=== PATIENT | male | born 1970 | race Caucasian/White ===

== ENCOUNTER 2023-01-13 07:42 | Emergency (ER) | payer BC, SELFPAY ==
[2023-01-13 07:51] VITALS: BP 121/71; PULSE 57; RESP 16; TEMP 36.3; O2SAT 92; BMI 28.1
--- NOTE | 2023-01-13 08:01 | ED.GENADULT ---
HPI - General Adult General Time Seen by Provider: 08:01 Date Seen: 01/13/23 Chief complaint: Animal Bite Stated complaint: cat bite, 01/12/23 Time Seen by Provider: 01/13/23 08:01 Source: patient and RN notes reviewed Mode of arrival: ambulatory Limitations: no limitations History of Present Illness HPI narrative: Patient is a very pleasant 52-year-old man with tetanus that is who comes to the emergency room for evaluation regarding CT and bites and scratches. Patient notes that he is visiting from [place] and staying here in the area. He notes that he was playing with an indoor cat, vaccine status on known, who ended up biting him and scratching him on his left arm. He now has redness around 1 of the areas and discomfort. He has not experienced any fever or chills. He has not had difficult to treat infections in the past. He notes no numbness or tingling. Related Data Home Medications Medication Instructions Recorded Confirmed fluticasone 100 mcg-salmeterol 50 1 inh inhalation DAILY 01/13/23 01/13/23 mcg/dose blistr powdr for inhalation (Advair Diskus) omeprazole 20 mg capsule,delayed 20 mg PO DAILY 01/13/23 01/13/23 release sertraline 150 mg capsule 150 mg PO DAILY 01/13/23 01/13/23 Allergies Allergy/AdvReac Type Severity Reaction Status Date / Time No Known Drug Allergies Allergy Verified 01/13/23 07:49 Review of Systems Status of ROS: Reports: 6 or more systems reviewed and unremarkable except as noted in History and below Const: Denies: fever or chills Cardio: Denies: shortness of breath with exertion Resp: Denies: shortness of breath Neuro: Denies: numbness in extremities or weakness in extremities Exam Narrative: Exam Narrative: Alert and oriented. No acute distress. Examination of the arm shows at least 3 puncture wounds with partial scabbing on the right for arm dorsum. The middle 1 does have air surrounding erythema as well as tenderness. Erythema is not well demarcated. On the volar surface there are 2 more wounds. He also has a superficial scratch noted on the lateral aspect of the forearm. He has no pain if I flex or extend the wrist. Distally sensation and motor is intact. The wounds are not excessively warm to the touch. Const: Vital Signs, click to edit/add: Vital Signs - 24 hr 01/13/23 07:51 Temperature 97.3 F L Pulse Rate [Pulse Oximeter] 57 L Respiratory Rate 16 Blood Pressure [Ri ght Upper Arm] 121/71 Pulse Oximetry 92 Oxygen Delivery Me thod Room Air Documenting provider has reviewed patient's vital signs: yes Course Course Hospital Course: At this time 2 of the 3 wounds on the dorsum of the forearm do have surrounding erythema and some swelling. Will x-ray to ensure no foreign body is retained-CT teeth. Also trying to ascertain vaccination status of the CT as well as if this CT has access to the outside environment or is purely a house cat. Vital Signs Vital signs: Initial Vital Signs Temperature 97.3 F L 01/13/23 07:51 Temperature Source Temporal Artery Scan 01/13/23 07:51 Pulse Rate 57 L 01/13/23 07:51 Pulse Rhythm Regular 01/13/23 07:51 Pulse Strength 3+ Normal 01/13/23 07:51 Respiratory Rate 16 01/13/23 07:51 Blood Pressure 121/71 01/13/23 07:51 Blood Pressure Mean 87 01/13/23 07:51 Blood Pressure Position Sitting 01/13/23 07:51 Pulse Oximetry 92 01/13/23 07:51 Oxygen Delivery Method Room Air 01/13/23 07:51 Vital Signs Temperature 97.3 F L 01/13/23 07:51 Pulse Rate 57 L 01/13/23 07:51 Respiratory Rate 16 01/13/23 07:51 Blood Pressure 121/71 01/13/23 07:51 Pulse Oximetry 92 01/13/23 07:51 Oxygen Delivery Method Room Air 01/13/23 07:51 Temperature 97.3 F L 01/13/23 07:51 Pulse Rate 57 L 01/13/23 07:51 Respiratory Rate 16 01/13/23 07:51 Blood Pressure 121/71 01/13/23 07:51 Pulse Oximetry 92 01/13/23 07:51 Oxygen Delivery Method Room Air 01/13/23 07:51 Medical Decision Making [facility] Narrative Medical decision making narrative: 1. Cat bite cellulitis-patient has no allergies. Will treat with Augmentin 875 p.o. b.i.d. x7 days. Patient will need to return for worsening symptoms especially fever, chills, vomiting, increasing redness or purulent drainage. 2. . Disposition-home at this time. Return as needed for worsening symptoms. Note we were able to ascertain that the cat that bit Jabari has up-to-date vaccinations. It is also in entirely in the house cat. Does not get released to the outside. Therefore it would suggest quarantine of the CT inside for the next [address] starts behaving abnormally they will need to take it to the vet and let the vent know that somebody had previously been bitten and although remote there would be a concern for rabies. Patient is discharged by nursing. Imaging Data Right forearm x-ray: Attestation: I have reviewed the pertinent imaging results. My impression: No foreign bodies noted. Radiologist's impression: ones: Alignment is normal. No fractures or bone lesions.? Joint spaces: Unremarkable.? Soft tissues: No radiodense foreign body or soft tissue gas. Impression: Unremarkable right forearm. Discharge Plan Discharge Clinical Impression: Cellulitis Qualifiers: Site of cellulitis: extremity Site of cellulitis of extremity: upper extremity Laterality: right Qualified Code(s): L03.113 - Cellulitis of right upper limb Cat bite Qualifiers: Encounter type: initial encounter Qualified Code(s): W55.01XA - Bitten by cat, initial encounter Patient Disposition: Home, Self-Care Condition: Unchanged Additional Instructions: Start antibiotic Augmentin today and continue for 7 days. Do not stop the medication just because the wound is improved. Continue for the full course. Monitor your wounds. Limit a lot of movement at the elbow and wrist. Have your friends quarantine the cat inside-absolutely no released to the outside. If the CT starts acting unusual, strange behavior, avoiding food or water, except sure a take the cat to the vet immediately. Tell the vet that the CT recently bit somebody and that it would need to be evaluated for rabies. This is highly unlikely since you have now determined that the cat is fully vaccinated. Return for worsening symptoms especially fever, chills, vomiting, increasing redness or purulent drainage. Sometimes cat bites will get worse and we have to do IV antibiotics. Prescriptions: No Action omeprazole 20 mg capsule,delayed release(DR/EC) 20 mg PO DAILY sertraline 150 mg capsule 150 mg PO DAILY fluticasone propion-salmeterol [Advair Diskus] 100-50 mcg/dose blister with device 1 inh inhalation DAILY Stand Alone Forms: [employer] Info Instructions
--- NOTE | 2023-01-13 08:06 | CRLHL7_ITS ---
For Patients: As a result of the Cures Act, medical imaging exams and procedure reports are released immediately into your electronic medical record. You may view this report before your referring provider. If you have questions, please contact your health care provider. Indication: multiple cat bite Technique: Right forearm 2 views. Comparison: None. Findings: Bones: Alignment is normal. No fractures or bone lesions. Joint spaces: Unremarkable. Soft tissues: No radiodense foreign body or soft tissue gas. Impression: Unremarkable right forearm. Dictated by Sonny Bean MD @ 01/13/2023 8:20:47 AM (Electronically Signed)
== END 2023-01-13 08:55 | disposition home or self-care (01) ==
LOC: ED 08:29
PROVIDERS: Emergency Provider Family Medicine
DX: L03.114 Cellulitis of left upper limb (principal); W55.01XA Bitten by cat, initial encounter
CPT/HCPCS: 73090; 99283